=== PATIENT | female | born 1965 | race Caucasian/White ===

== ENCOUNTER 2018-04-27 18:16 | Emergency (ER) | payer MEDICARE, MEDICAID ==
[~2018-04-27] VITALS: Ht 152.4 cm; Wt 46.4 kg
[~2018-04-27 18:16] MED LIST: CLIN150C99 PO; CLIN300C85 PO; CLON-527 PO; COL100C PO; CYCL-1 PO; HYDR-3564 PO; HYDR-4353 PO; HYDR-4383 PO; MECL-111 PO; NORCO10T PO
[2018-04-27 18:45] VITALS: BP 166/82
== END 2018-04-27 20:41 | disposition left against medical advice (07) ==
LOC: ER 18:17
DX: M79.671 Pain in right foot (principal); M79.89 Other specified soft tissue disorders; G89.29 Other chronic pain; F15.90 Other stimulant use, unspecified, uncomplicated; F17.200 Nicotine dependence, unspecified, uncomplicated; Z56.0 Unemployment, unspecified; Z90.710 Acquired absence of both cervix and uterus; Z98.890 Other specified postprocedural states; Z88.5 Allergy status to narcotic agent; Z88.2 Allergy status to sulfonamides; Z88.8 Allergy status to other drugs, medicaments and biological substances
CPT/HCPCS: 73630; 99284

== ENCOUNTER 2018-11-14 07:01 | Emergency (ER) | payer MEDICARE, MEDICAID ==
[~2018-11-14] VITALS: Ht 154.9 cm; Wt 46.8 kg
[~2018-11-14 07:01] MED LIST changes: +CLIN-96 PO; -CLIN300C85 PO; -HYDR-3564 PO; +HYDR-3565 PO
[2018-11-14] MEDS ORDERED: ketorolac trometh inj. 60 MG/2 ML VIAL IM ONE (07:45)
[2018-11-14] MEDS ORDERED: IBUP-1984 PO (08:34)
[2018-11-14] MEDS ORDERED: CYCL-1 PO (08:34)
[2018-11-14 09:12] VITALS: BP 116/66
== END 2018-11-14 08:48 | disposition home or self-care (01) ==
LOC: ER 07:01
DX: M25.552 Pain in left hip (principal); G89.29 Other chronic pain; Z56.0 Unemployment, unspecified; Z98.890 Other specified postprocedural states; Z90.710 Acquired absence of both cervix and uterus; Z88.5 Allergy status to narcotic agent; Z88.2 Allergy status to sulfonamides; Z88.8 Allergy status to other drugs, medicaments and biological substances
CPT/HCPCS: 73502; 96372; 99284; J1885

== ENCOUNTER 2018-11-15 10:40 | Emergency (ER) | payer MEDICARE, MEDICAID ==
[~2018-11-15] VITALS: Ht 154.9 cm; Wt 45.0 kg
[~2018-11-15 10:40] MED LIST changes: +IBUP-1984 PO
[2018-11-15 10:44] VITALS: BP 135/72
== END 2018-11-15 11:14 | disposition home or self-care (01) ==
LOC: ER 10:41
DX: G89.29 Other chronic pain (principal); M25.552 Pain in left hip; Z88.5 Allergy status to narcotic agent; Z88.2 Allergy status to sulfonamides; Z88.8 Allergy status to other drugs, medicaments and biological substances; Z79.2 Long term (current) use of antibiotics; Z79.899 Other long term (current) drug therapy; Z86.14 Personal history of Methicillin resistant Staphylococcus aureus infection; Z90.710 Acquired absence of both cervix and uterus; Z98.890 Other specified postprocedural states; Z56.0 Unemployment, unspecified
CPT/HCPCS: 99281

== ENCOUNTER 2019-04-06 09:14 | Emergency (ER) | payer MEDICARE, MEDICAID ==
[~2019-04-06] VITALS: Ht 152.4 cm; Wt 39.4 kg
[~2019-04-06 09:14] MED LIST changes: -IBUP-1984 PO
[2019-04-06 09:22] VITALS: BP 136/80
[2019-04-06] MEDS ORDERED: DOXY100C2 PO (09:44)
[2019-04-06] MEDS ORDERED: MUPI22OI30 TOP (09:44)
== END 2019-04-06 10:01 | disposition home or self-care (01) ==
LOC: ER 09:15
DX: S91.302A Unspecified open wound, left foot, initial encounter (principal); L03.116 Cellulitis of left lower limb; G89.29 Other chronic pain; Z86.14 Personal history of Methicillin resistant Staphylococcus aureus infection; Z90.710 Acquired absence of both cervix and uterus; Z98.890 Other specified postprocedural states; Z56.0 Unemployment, unspecified; Z88.5 Allergy status to narcotic agent; Z88.2 Allergy status to sulfonamides; Z88.8 Allergy status to other drugs, medicaments and biological substances; Z79.2 Long term (current) use of antibiotics; Z79.899 Other long term (current) drug therapy; X58.XXXA Exposure to other specified factors, initial encounter; Y93.89 Activity, other specified; Y92.89 Other specified places as the place of occurrence of the external cause; Y99.8 Other external cause status
CPT/HCPCS: 99283

== ENCOUNTER 2021-05-08 09:29 | Emergency (ER) | payer MEDICARE, MEDICAID ==
[~2021-05-08] VITALS: Ht 154.9 cm; Wt 46.0 kg
[~2021-05-08 09:29] MED LIST changes: -CLIN-96 PO; +CLIN-97 PO; -MECL-111 PO; +MECL-159 PO
[2021-05-08] MEDS ORDERED: morphine 4 MG/ML inj SYRINge IM ONE (10:05)
[2021-05-08] MEDS ORDERED: HYDROcodone/acetaminophen 10/325mg tab PO ONE (10:05)
[2021-05-08] MEDS ORDERED: ondansetron 4mg rapidly disintigrating tab PO ONE (10:05)
--- NOTE | 2021-05-08 10:16 | NUR ---
awaiting radiologic technology program director to take patient to radiology.
--- NOTE | 2021-05-08 10:17 | NUR ---
patient to xray.
[2021-05-08] MEDS ORDERED: HYDR-3972 PO (11:36)
[2021-05-08 11:55] VITALS: BP 120/88
--- NOTE | 2021-05-08 12:05 | NUR ---
Given incentive spirometer and taught use. Good return demonstration. Given and understands d/c instructions. Ambulatory with a steady gait.
== END 2021-05-08 12:17 | disposition home or self-care (01) ==
LOC: ER 09:30
DX: S29.8XXA Other specified injuries of thorax, initial encounter (principal); R07.81 Pleurodynia; Z88.5 Allergy status to narcotic agent; Z88.2 Allergy status to sulfonamides; Z88.8 Allergy status to other drugs, medicaments and biological substances; Z79.2 Long term (current) use of antibiotics; Z79.899 Other long term (current) drug therapy; W19.XXXA Unspecified fall, initial encounter; Y93.89 Activity, other specified; Y92.89 Other specified places as the place of occurrence of the external cause; Y99.8 Other external cause status
CPT/HCPCS: 71046; 96372; 99284; J2270

== ENCOUNTER 2024-10-02 09:12 | Emergency (ER) | payer MEDICARE, MEDICAID ==
[~2024-10-02] VITALS: Ht 152.4 cm; Wt 42.4 kg
[~2024-10-02 09:12] MED LIST changes: -MECL-159 PO; +MECL-302 PO
[2024-10-02 09:16] VITALS: BP 150/80; PULSE 87; RESP 16; O2SAT 88
[2024-10-02] MEDS ORDERED: AMOX-580 PO (10:26)
[2024-10-02] MEDS ORDERED: AZIT-164 PO (10:26)
[2024-10-02 10:34] VITALS: TEMP 98.4
== END 2024-10-02 10:36 | disposition home or self-care (01) ==
LOC: ER 09:13
DX: J18.9 Pneumonia, unspecified organism (principal); F17.210 Nicotine dependence, cigarettes, uncomplicated; Z88.2 Allergy status to sulfonamides; Z88.5 Allergy status to narcotic agent
CPT/HCPCS: 71045; 99283